=== PATIENT | female | born 1995 | race Caucasian/White ===

== ENCOUNTER 2019-12-16 09:39 | Inpatient (IN) | payer BC, SELFPAY ==
[2019-12-16] VITALS (45 sets, daily range): BP systolic 0–133; BP diastolic 0–81; PULSE 84–144; RESP 17–18; TEMP 36.7–37.1; O2SAT 96–98; BMI 30.3
[2019-12-16] MEDS: miSOPROStol 100 mcg tablet 50 MCG VAGINAL (11:49)
[2019-12-16 13:04] LABS: Basophils % 0.2 %; Eosinophils # 0.1 10^3/uL (0.0-0.8); Eosinophils % 0.6 %; Hematocrit 35.3 % (37.0-47.0); Hemoglobin 10.8 g/dL (11.5-15.3); Lymphocytes # 1.6 10^3/uL (0.8-4.8); Lymphocytes % 13.2 %; Mean Corpuscular HGB Conc 30.6 g/dL (30.0-36.0); Mean Corpuscular Hemoglobin 23.7 pg (28.0-34.0); Mean Corpuscular Volume 77.4 fL (81-99); Mean Platelet Volume 10.4 fL (7.4-10.4); Monocytes # 0.6 10^3/uL (0.2-0.9); Monocytes % 5.2 %; Neutrophils # 9.5 10^3/uL (1.8-7.7); Neutrophils % 79.2 %; Nucleated Red Blood Cells % 0 %; Platelet Count 278 10^3/cmm (130-400); Red Blood Count 4.56 10^6/uL (4.1-5.3); Red Cell Distribution Width 15.1 % (12.1-15.1)
[2019-12-16] MEDS: miSOPROStol 100 mcg tablet 25 MCG VAGINAL (16:23)
[2019-12-16] MEDS: dextrose 5%-lactated ringers 1,000 ML 125 ML IV (17:47)
[2019-12-16] MEDS: fentaNYL 50 mcg/mL INJ 2mL IV (17:47)
[2019-12-16] MEDS: lactated ringers 1,000 ML 999 ML IV (17:54)
--- NOTE | 2019-12-16 18:31 | ANES.PREANES ---
Pre-Anesthetic Assessment Pre-Anesthetic Assessment: Height/Weight: Height 1.68 m Weight 85.275 kg Temp Pulse Resp BP 98.0 F 124 H 18 133/80 12/16/19 12:43 12/16/19 12:37 12/16/19 17:47 12/16/19 12:37 Preop Diagnosis: labor Proposed Procedure: epidural Was Beta Lalo taken within 24 hours: N/A Last Intake: 17:00 Social: Social History: No alcohol and No tobacco Exam: Pre-Anes Outpt Exam: alert, oriented x 3, clear to auscultation bilaterally and regular rate & rhythm Airway: Submandibular: WNL Cervical ROM: WNL MP: 2 Pulmonary: Pulmonary: None reported CV/HEM: CV/HEM: None reported : : None reported Hepatic: Hepatic: None reported GI: GI: GERD Comments: Metabolic: Metabolic: None reported Musc/skel: Musc/skel: None reported Neuropsych: Neuropsych: Depression and None reported Anesthetic Plan: ASA status: II Anesthesia: Anesthesia Evaluation and Eval. for regional block Risk of > 500 ml blood loss (7ml/kg in children): No Meds/Allergies Current Medications: Current Medications Generic Name Dose Route Start Last Admin Trade Name Freq PRN Reason Stop Dose Admin Fentanyl 25 - 100 mcg 12/16/19 10:36 12/16/19 17:47 Sublimaze IV 50 mcg Q1H PRN Administration SEVERE PAIN Lactated Ringer's 1,000 mls @ 999 m ls/hr 12/16/19 10:36 12/16/19 17:54 Lactated Ringers IV 999 mls/hr .Q1H1M PRN Administration Per L&D Rescitati on Protocol Dextrose/Lactated Ringer's 1,000 mls @ 125 m ls/hr 12/16/19 10:45 12/16/19 17:47 Dextrose 5%-Lact ated Ringers IV 125 mls/hr .Q8H DHRUV Administration PFSH Anesthesia Female Reproductive History: : 3 Data Anesthesia CBC & Chem 7: 12/16/19 12:05 Other Labs: Laboratory Results - last 48 hr 12/16/19 12:05 WBC 12.0 H RBC 4.56 Hgb 10.8 L Hct 35.3 L MCV 77.4 L MCH 23.7 L MCHC 30.6 RDW 15.1 Plt Count 278 MPV 10.4 Neut % (Auto) 79.2 Lymph % (Auto) 13.2 [place] % (Auto) 5.2 Eos % (Auto) 0.6 Baso % (Auto) 0.2 Neut # (Auto) 9.5 H Lymph # (Auto) 1.6 [place] # (Auto) 0.6 Eos # (Auto) 0.1 Baso # (Auto) 0.0 Nucleated RBC % (auto) 0 Nucleated RBCs # 0.0 Cardiac Studies: No Data to Display
--- NOTE | 2019-12-16 19:17 | P.ANES_ITS ---
Anesthesia Procedures Procedure/Date: 12/16/19 Epidural: Time Out Performed: Yes Consents Signed: Procedure Consent Consent: requested by attending/covering physician and from patient Lumbar Level: L2-L3 Epidural position: sitting Epidural procedure: sterile prep of area (betadine), 1% lidocaine to numb the area (3ml), neg for paresthesia, te st dose given, 1.5% xylocaine 1:200k epi (3ml), 0.2% Ropivacaine bolus ml (8ml with 100mcg Fentanyl), no systemic response, sterile dressing applied, L.U.D. no apparent complications and 0.2% Ropiavacaine @ mls/hr (13ml/hr)
[2019-12-16] MEDS: oxytocin 30 UNIT/500 ML BAG 600 UNIT IV (19:45)
--- NOTE | 2019-12-16 20:45 | PM.DELIVERY ---
 Delivery Note: Date of delivery: 12/16/19 Pre-delivery diagnoses: 24-year-old 3 para 2-0-0-2 at 35 weeks estimated gestational age presenting with a demise of unknown origin Post-delivery diagnoses: Status post spontaneous breech delivery of a demise Anesthesia: epidural Estimated blood loss (mL): 50 Pre-Delivery Course: The patient is a pleasant 24-year-old female who had an unremarkable . She had no significant risk factors. Her labs were within normal limits. The patient presented to the hospital complaining of no movement since the night before at 7 PM. Upon arriving at the hospital, no heart tones were appreciated. An ultrasound was then done which demonstrated no heart tones. We then induced the patient by placing her on 50 mcg of Cytotec and followed it with 25 mcg of Cytotec 4 hours later. An amniotomy was then performed. An epidural was placed. She progressed to complete without difficulty. Delivery: DELIVERY: The patient progressed to complete without difficulty. She delivered a demise that was male male with a weight of 5 pounds 1 ounce The baby was delivered from the brando breech position without difficulty. The cord was then clamped and cut. There was a nuchal cord x1. There was no meconium. The placenta and 3 vessel cord were delivered intact shortly thereafter. The perineum and vaginal vault were carefully examined. No lacerations were noted. Both the mother and the baby were in stable condition. The possibility of having an autopsy, and the parents were not interested. We have contacted the home, and they will be by as soon as the family is done taking time with the baby. Post-Delivery Status: Good. The patient has expressed a strong desire to go home as soon as is reasonable because she does not want to be on the floor. I have agreed to send her home 4 hours as long as she does not have questionable bleeding. A&P Assessment and plan (1) 35 weeks gestation of : Status: Acute Code(s): Z3A.35 - 35 weeks gestation of (2) demise > 22 weeks, delivered, current hospitalization: Status: Acute Code(s): O36.4XX0 - Maternal care for intrauterine , not applicable or unspecified (3) Breech delivery: Status: Acute Code(s): O32.1XX0 - Maternal care for breech presentation, not applicable or unspecified Coding Level of Care Code Acute Electrical Assistant for Chg Fwd Diagnoses 35 weeks gestation of Z3A.35 demise > 22 weeks, delivered, current hospitalization O36.4XX0 Breech delivery O32.1XX0
--- NOTE | 2019-12-16 21:11 | PM.OBGYDC ---
Discharge Providers DIRECTOR CAREER Date of Admission: 12/16/19 09:39 Date of Discharge: 01/20/20 Attending Provider at Admission: Aleksandr Samaniego MD Attending Provider at Discharge: Aleksandr Samaniego MD Diagnoses at Discharge Discharge Diagnosis (1) 35 weeks gestation of : Status: Acute (2) demise > 22 weeks, delivered, current hospitalization: Status: Acute (3) Breech delivery: Status: Acute Reason for Visit Reason for Visit: Reason For Visit: decreased movement Hospital Course Hospital Course: The patient presented to the hospital because of reduced movement. Upon arrival was determined that there was no heart activity. We then induced the patient by starting her on 50 mcg of Cytotec x1 and 25 mcg 4 hours later. An amniotomy was performed. She progressed to complete and had an unremarkable breech delivery of a male . Patient expressed a strong desire to go home as soon as possible and to be off the OB floor. As result I discharged her home about 4 hours after the delivery and after was determined that her bleeding was minimal. Physical Exam Const: COMMON NORMALS: alert Resp: COMMON NORMALS: clear to auscultation bilaterally AUSCULTATION: clear to auscultation bilaterally Cardio: COMMON NORMALS: regular rate and regular rhythm RATE: regular rate RHYTHM: regular rhythm GI: INSPECTION: Yes normal to inspection and Yes other (Gravid) Extremity: COMMON NORMALS: normal to inspection GENERAL: Yes edema (Trace) Neuro: SENSORIUM/ORIENTATION: Yes alert Psych: COMMON NORMALS: mental status grossly normal Skin: COMMON NORMALS: no rashes or lesions noted GENERAL SKIN EXAM: no rashes or lesions noted Discharge Data Data Completed and Pending: Pending at discharge Category Date Time Status Hemagram Timed Lab 12/17/19 08:41 Ordered Labs from last 24 hours 12/16/19 12:05 WBC 12.0 H RBC 4.56 Hgb 10.8 L Hct 35.3 L MCV 77.4 L MCH 23.7 L MCHC 30.6 RDW 15.1 Plt Count 278 MPV 10.4 Neut % (Auto) 79.2 Lymph % (Auto) 13.2 [place] % (Auto) 5.2 Eos % (Auto) 0.6 Baso % (Auto) 0.2 Neut # (Auto) 9.5 H Lymph # (Auto) 1.6 [place] # (Auto) 0.6 Eos # (Auto) 0.1 Baso # (Auto) 0.0 Nucleated RBC % (a uto) 0 Nucleated RBCs # 0.0 Vitals: Last Vital Signs Temp 98.0 F 12/16/19 12:43 Pulse 97 12/16/19 21:03 Resp 18 12/16/19 17:47 BP 120/70 12/16/19 21:03 Pulse Ox 96 12/16/19 19:00 Discharge Plan Discharge Patient Disposition: Home, Self-Care Condition: Stable Prescriptions: Continued sertraline 25 mg Tablet 25 mg PO DAILY RF: 0 omeprazole 10 mg Capsule,Delayed Release(Dr/Ec) 10 mg PO DAILY RF: 0 No Action ibuprofen 800 mg tablet 800 mg PO TID PRN (Reason: Pain) RF: 0 Discharge Orders: Discharge Order (Routine); Ordered 12/16/19 Ordered By: Aleksandr Samaniego Referrals: Aleksandr Samaniego MD [Family Provider] - 4-7 days Discharge Diet: Regular Discharge Activity: Limit activity as instructed Patient Instructions: Vaginal Delivery (DC), Bleeding (DC) Discharge Date/Time: 12/17/19 00:15 Discharge Attestations DIRECTOR CAREER Time Spent in Discharge Care*: greater than 30 min Coding Level of Care Code Acute Director Of Regional Sales for Chg Fwd Diagnoses 35 weeks gestation of Z3A.35 demise > 22 weeks, delivered, current hospitalization O36.4XX0 Breech delivery O32.1XX0
--- NOTE | 2019-12-16 23:00 | PC.NURSE ---
[facility] be drawn on patient before she is to be discharged, patient does not need to stay for results and she may be discharged once she is at her 4 hour della from delivery. also orders RN to inform patient to call outpatient lab in the morning to determine if the rhogam injection is needed prior to driving to lab and if rhogam is needed she needs to also have her hemagram drawn at that time but she does not need to go to the lab just for the hemagram. RN placed KB stain order.
--- NOTE | 2019-12-16 23:20 | PC.NURSE ---
RN at bedside, POC discussed with patient and spouse. Verbalized understanding.
== END 2019-12-17 00:15 | disposition home or self-care (01) | DRG 807 ==
LOC: OPOB 09:50 → OBGYN 09:51 → OPOB 10:49
PROVIDERS: Admitting Provider Family Medicine; Family Provider Family Medicine; Visit Provider Family Medicine
DX: O36.4XX0 Maternal care for intrauterine death, not applicable or unspecified (principal); Z37.1 Single stillbirth; Z3A.35 35 weeks gestation of pregnancy; O69.81X0 Labor and delivery complicated by cord around neck, without compression, not applicable or unspecified; O32.1XX0 Maternal care for breech presentation, not applicable or unspecified
CPT/HCPCS: 12345; 36415; 59409; 85025; 85460; 99211; J2795; J3010

== ENCOUNTER 2019-12-18 07:50 | Outpatient (CLI) | payer BC, SELFPAY ==
[2019-12-18 09:09] VITALS: BMI 29.8
[2019-12-18 09:19] VITALS: BP 112/79; PULSE 79; RESP 16; TEMP 36.6; O2SAT 99
[2019-12-18 09:49] VITALS: BP 112/79; PULSE 79; RESP 16; TEMP 5392.2; TEMP 9738
== END 2019-12-18 07:51 | disposition home or self-care (01) ==
LOC: GILAB 07:55
PROVIDERS: Family Provider Family Medicine; PCP Family Medicine; Visit Provider Family Medicine
DX: O26.899 Other specified pregnancy related conditions, unspecified trimester (principal); Z67.91 Unspecified blood type, Rh negative
CPT/HCPCS: 36415; 86850; 86900; 90384; 96372

== ENCOUNTER 2021-01-19 09:34 | Outpatient (CLI) | payer BC, MEDICAID, SELFPAY ==
[2021-01-19 09:58] VITALS: TEMP 36.7
[2021-01-19 10:09] VITALS: BP 113/73; PULSE 88
[2021-01-19 10:24] VITALS: BP 115/75; PULSE 96
--- NOTE | 2021-01-19 10:34 | PC.NURSE ---
pt refused the medication offered to give.
== END 2021-01-19 10:44 | disposition home or self-care (01) ==
LOC: OPOB 09:42 → OBGYN 09:55
PROVIDERS: Family Provider Family Medicine; PCP Family Medicine; Visit Provider Family Medicine
DX: O21.9 Vomiting of pregnancy, unspecified (principal); Z3A.00 Weeks of gestation of pregnancy not specified
CPT/HCPCS: 59025; 99211

== ENCOUNTER 2024-08-06 09:10 | Outpatient (CLI) | payer OTHER, SELFPAY ==
[2024-08-06 09:10] VITALS: BMI 31.4
[2024-08-06 09:25] VITALS: BP 119/72; PULSE 103
[2024-08-06 09:40] VITALS: BP 114/68; PULSE 90
[2024-08-06 09:49] VITALS: RESP 17
[2024-08-06 09:53] VITALS: BP 114/68; PULSE 90
== END 2024-08-06 10:00 | disposition home or self-care (01) ==
LOC: OPOB 09:17 → OBGYN 09:18
PROVIDERS: PCP Family Medicine; Visit Provider Family Medicine
DX: O26.899 Other specified pregnancy related conditions, unspecified trimester (principal); Z3A.00 Weeks of gestation of pregnancy not specified; Z87.59 Personal history of other complications of pregnancy, childbirth and the puerperium
CPT/HCPCS: 59025; 99211

== ENCOUNTER 2024-08-13 09:20 | Outpatient (CLI) | payer OTHER, SELFPAY ==
[2024-08-13 09:15] VITALS: BMI 23.1
[2024-08-13 09:28] VITALS: BP 129/90; PULSE 118
[2024-08-13 09:48] VITALS: BP 121/75; PULSE 102
[2024-08-13 10:08] VITALS: BP 120/64; PULSE 99
[2024-08-13 10:46] VITALS: BP 120/64; PULSE 99; RESP 16
== END 2024-08-13 10:30 | disposition home or self-care (01) ==
LOC: OPOB 09:21 → OBGYN 09:23
PROVIDERS: PCP Family Medicine; Visit Provider Family Medicine
DX: O26.899 Other specified pregnancy related conditions, unspecified trimester (principal); Z3A.00 Weeks of gestation of pregnancy not specified; Z87.59 Personal history of other complications of pregnancy, childbirth and the puerperium
CPT/HCPCS: 59025; 99211

== ENCOUNTER 2024-08-20 09:33 | Outpatient (CLI) | payer OTHER, SELFPAY ==
[2024-08-20 09:41] VITALS: BP 113/68; PULSE 101
[2024-08-20 09:53] VITALS: RESP 16; BMI 31.7
[2024-08-20 09:56] VITALS: BP 114/64; PULSE 107
[2024-08-20 10:01] VITALS: BP 114/64; PULSE 107; RESP 16
== END 2024-08-20 10:05 | disposition home or self-care (01) ==
LOC: OPOB 09:34 → OBGYN 09:35
PROVIDERS: PCP Family Medicine; Visit Provider Family Medicine
DX: O26.899 Other specified pregnancy related conditions, unspecified trimester (principal); Z3A.00 Weeks of gestation of pregnancy not specified; Z87.59 Personal history of other complications of pregnancy, childbirth and the puerperium
CPT/HCPCS: 59025

== ENCOUNTER 2024-08-27 09:30 | Outpatient (CLI) | payer OTHER, SELFPAY ==
[2024-08-27 09:39] VITALS: BP 112/63; PULSE 95
[2024-08-27 09:55] VITALS: BP 100/63; PULSE 104
== END 2024-08-27 10:15 | disposition home or self-care (01) ==
LOC: OPOB 09:33 → OBGYN 09:35
PROVIDERS: PCP Family Medicine; Visit Provider Family Medicine
DX: O26.899 Other specified pregnancy related conditions, unspecified trimester (principal); Z3A.00 Weeks of gestation of pregnancy not specified; Z87.59 Personal history of other complications of pregnancy, childbirth and the puerperium
CPT/HCPCS: 59025

== ENCOUNTER 2024-08-30 16:21 | Outpatient (CLI) | payer OTHER, SELFPAY ==
[2024-08-30] VITALS (9 sets, daily range): BP systolic 104–116; BP diastolic 55–70; PULSE 64–83; RESP 18; TEMP 35.2; BMI 31.6
[2024-08-30 16:44] LABS: Bilirubin Urine Negative (Negative); Blood Urine Negative (Negative); Glucose Urine UA Negative (Normal); Ketones Urine 1+ (Negative); Leukocyte Esterase Urine Trace (Negative); Nitrate Urine Negative (Negative); Protein Urine 1+ (Negative); Urine Appearance Clear (CLEAR); Urine Color Yellow (Yellow); pH Urine 5.5 (5-7)
[2024-08-30 17:02] LABS: Bacteria Urine 2+ /hpf; Mucus Urine 3+ /hpf
[2024-08-30 17:03] LABS: Add Urine Culture? No
[2024-08-30] MEDS: acetaminophen 500 mg Tablet 1000 MG PO (17:32)
[2024-08-30] MEDS: cefTRIAXone 2,000 mg SDV 2000 MG IVP (17:32)
[2024-08-30] MEDS: ondansetron 2 mg/ML SDV 2 mL 4 MG IVP (17:32)
[2024-08-30] MEDS: lactated ringers 1,000 ML 999 ML IV (17:33)
== END 2024-08-30 19:55 | disposition home or self-care (01) ==
LOC: OPOB 16:22 → OBGYN 16:23
PROVIDERS: Family Medicine; PCP Family Medicine; Visit Provider Family Medicine
DX: O21.9 Vomiting of pregnancy, unspecified (principal); Z3A.00 Weeks of gestation of pregnancy not specified; R10.9 Unspecified abdominal pain
CPT/HCPCS: 59025; 81001; 87086; 96374; 99211; J0696; J2405; J7120

== ENCOUNTER 2024-09-03 09:18 | Outpatient (CLI) | payer OTHER, SELFPAY ==
[2024-09-03 09:20] VITALS: BMI 31.9
[2024-09-03 09:27] VITALS: BP 119/78; PULSE 101
[2024-09-03 09:42] VITALS: BP 111/76; PULSE 103
[2024-09-03 09:50] VITALS: BP 111/76; PULSE 103
== END 2024-09-03 09:50 | disposition home or self-care (01) ==
LOC: OPOB 09:20 → OBGYN 09:20
PROVIDERS: PCP Family Medicine; Visit Provider Family Medicine
DX: O26.899 Other specified pregnancy related conditions, unspecified trimester (principal); Z3A.00 Weeks of gestation of pregnancy not specified; Z87.59 Personal history of other complications of pregnancy, childbirth and the puerperium
CPT/HCPCS: 59025; 99211

== ENCOUNTER 2024-09-10 09:29 | Outpatient (CLI) | payer OTHER, SELFPAY ==
[2024-09-10 09:44] VITALS: BP 114/65; PULSE 84
[2024-09-10 09:45] VITALS: BMI 31.9
[2024-09-10 10:04] VITALS: BP 121/59; PULSE 86
[2024-09-10 10:24] VITALS: BP 106/68; PULSE 82
[2024-09-10 10:40] VITALS: BP 106/68; PULSE 82; RESP 16
== END 2024-09-10 10:40 | disposition home or self-care (01) ==
LOC: OPOB 09:29 → OBGYN 09:30
PROVIDERS: PCP Family Medicine; Visit Provider Family Medicine
DX: O26.899 Other specified pregnancy related conditions, unspecified trimester (principal); Z3A.00 Weeks of gestation of pregnancy not specified; Z87.59 Personal history of other complications of pregnancy, childbirth and the puerperium
CPT/HCPCS: 59025; 99211

== ENCOUNTER 2024-09-13 19:05 | Inpatient (IN) | payer OTHER, SELFPAY ==
[2024-09-13] VITALS (7 sets, daily range): BP systolic 108–128; BP diastolic 67–77; PULSE 90–108; RESP 18; TEMP 36.6; BMI 32.1
[2024-09-13 19:58] LABS: Basophils % 0.3 %; Eosinophils # 0.1 10^3/uL (0.0-0.8); Eosinophils % 1.1 %; Hematocrit 32.5 % (36-47); Lymphocytes # 2.4 10^3/uL (0.8-4.8); Lymphocytes % 20.4 %; Mean Corpuscular HGB Conc 30.2 g/dL (30-55); Mean Corpuscular Hemoglobin 22.3 pg (27-33); Mean Corpuscular Volume 73.9 fl (85-98); Mean Platelet Volume 10.3 fL (7.4-10.4); Monocytes # 0.6 10^3/uL (0.2-0.9); Monocytes % 5.4 %; Neutrophils # 8.48 10^3/uL (1.8-7.7); Neutrophils % 72.2 %; Nucleated Red Blood Cells % 0 %; Platelet Count 269 10^3/cmm (157-399); Red Cell Distribution Width 16.6 % (12.1-15.1); White Blood Count 11.75 10^3/uL (3.29-11.43)
[2024-09-13] MEDS: miSOPROStol 100 mcg tablet 25 MCG VAGINAL (21:03)
[2024-09-14] VITALS (43 sets, daily range): BP systolic 105–135; BP diastolic 61–92; PULSE 66–167; RESP 15–20; TEMP 36.6–36.7; O2SAT 82–100
[2024-09-14] MEDS: lactated ringers 1,000 ML 999 ML IV ×2 (03:50→04:55)
--- NOTE | 2024-09-14 04:59 | P.ANESASSM_ITS ---
Pre-Anesthetic Assessment Height/Weight: Height 1.68 m Weight 90.265 kg Temp Pulse Resp BP O2 Del Method 98.0 F 76 20 H 126/69 Room Air 09/14/24 03:22 09/14/24 03:22 09/14/24 03:22 09/14/24 03:22 09/14/24 03:22 Preop Diagnosis: labor pain epidural Was Beta Lalo taken within 24 hours: N/A Was Clonidine taken within 24 hours: N/A Exam alert, oriented x 3, clear to auscultation bilaterally and regular rate & rhythm Airway Submandibular: within normal limits Cervical ROM: within normal limits Mallampati: Class II Dentition: full Pulmonary None reported CV/HEM Anemia None reported Hepatic None reported GI Gastroesophageal Reflux Disease Metabolic None reported Musc/skel None reported Neuropsych None reported Anesthetic Plan ASA status: 2 Anesthesia: Regional (specify below) Medications/Allergies Home Medications Medication Instructions Recorded Confirmed Last Taken Type omeprazole 10 mg capsule,delayed 10 mg PO DAILY 12/16/19 09/13/24 09/12/24 History release ferrous sulfate 325 mg (65 mg 325 mg PO DAILY 09/13/24 09/13/24 09/12/24 History iron) tablet (Iron (ferrous sulfate)) Allergies Allergy/AdvReac Type Severity Reaction Status Date / Time codeine Allergy ALGY-Difficulty Verified 09/13/24 20:37 Breathing guaifenesin [From Robitussin] Allergy ALGY-Swell Verified 09/13/24 20:37 Lip/Tongue/Throat Current Medications Generic Name Dose Route Start Last Admin Trade Name Freq PRN Reason Stop Dose Admin Lactated Ringer's 1,000 mls @ 999 mls/hr 09/14/24 03:55 09/14/24 04:55 Lactated Ringers IV 999 mls/hr .Q1H1M PRN Administration See label comments PFSH Anesthesia Female Reproductive History : 5 Data Anesthesia 09/13/24 19:20 Short CBC 09/13/24 Range/Units 19:20 WBC 11.75 H (3.29-11.43) 10^3/uL Hgb 9.80 L (11.27-16.99) g/dL Hct 32.5 L (36-47) % MCV 73.9 L (85-98) fl Plt Count 269 (157-399) 10^3/cmm Neut % (Auto) 72.2 % Neut # (Auto) 8.48 H (1.8-7.7) 10^3/uL Cardiac Studies: 2 No Data to Display
[2024-09-14] MEDS: ROPivacaine syringe 100 MG/50 ML SYRINGE 13 MG EPIDURAL ×2 (05:22→07:33)
--- NOTE | 2024-09-14 05:28 | ANES.PROC ---
Anesthesia Procedures Procedure/Date: 09/14/24 epidural Procedure Narrative: epidural complete, bolus given, epidural pump initiated with SOLAR PANEL INSTALLATION SUPERVISOR education given, vitals taken during procedure and satisfactory throughout, patient admits to decrease pain, report of procedure to OB RN Epidural: Time Out Performed: Yes Consents Signed: Procedure Consent Consent: requested by attending/covering physician, from patient, risks and benefits reviewed and patient agrees to proceed Lumbar Level: L3-L4 Epidural position: sitting Epidural procedure: sterile prep of area, 1% lidocaine to numb the area (3 mL), 18 g needle, negative for paresthesia passed, neg for paresthesia, test dose given, 1.5% xylocaine 1:200k epi (5 mL), 0.2% Ropivacaine bolus ml (5 mL), placed PCEA, no systemic response, sterile dressing applied, L.U.D. no apparent complications and 0.2% Ropiavacaine @ mls/hr (13 mL/hr)
[2024-09-14] MEDS: oxytocin 30 UNIT/500 ML BAG 600 UNIT IV (08:07)
--- NOTE | 2024-09-14 08:19 | PM.OPHPUD ---
Labor & Delivery H&P Update Date of Procedure: September 14, 2024 Date H&P Performed: 09/09/24 Changes to previous documentation: None Admission Diagnosis: Preop diagnosis: labor pain Other information: The patient presented to the hospital for induction due to history of stillbirth. Her been relatively unremarkable. Please see the labs. Related Problem List Diagnoses (1) 38 weeks gestation of : A&P Assessment and plan (1) 38 weeks gestation of : I anticipate routine induction and spontaneous vaginal delivery Status: Resolved
--- NOTE | 2024-09-14 08:25 | PM.DELIVERY ---
Delivery Note: Date of delivery: September 14, 2024 Pre-delivery diagnoses: 29-year-old 5 para 4-0-1-3 at 38 weeks estimated gestational age Post-delivery diagnoses: Status post spontaneous vaginal delivery Procedure: Spontaneous vaginal delivery Delivering Physician: Aleksandr Samaniego Estimated blood loss (mL): 100 Pre-Delivery Course: The patient presented to the hospital for induction due to history of stillbirth. She was placed on Cytotec 25 mcg x 2. An amniotomy was performed. An epidural had been placed. She progressed complete without difficulty. Delivery: DELIVERY: The patient progressed to complete without difficulty. She delivered a male with a weight of 7 pounds 9 ounces with Apgars of 8, 9. The baby was delivered from the ULISES position and placed on the mother's abdomen prior to delivery of the shoulders, he was noted to have a tight nuchal cord that had to be cut at that time. The baby was delivered shortly thereafter without complications. There was no meconium. The placenta and 3 vessel cord were delivered intact shortly thereafter. The perineum and vaginal vault were carefully examined. No lacerations were noted. Both the mother and the baby were in stable condition. A&P Assessment and plan (1) Spontaneous vaginal delivery: I anticipate routine care. (2) Nuchal cord affecting delivery: (3) 38 weeks gestation of : Coding Level of Care Code Acute Code for Chg Fwd Diagnoses Spontaneous vaginal delivery O80 Nuchal cord affecting delivery O69.81X0 38 weeks gestation of Z3A.38
[2024-09-14] MEDS: ibuprofen 800 mg tablet PO ×2 (14:39→20:42)
[2024-09-14] MEDS: docusate sodium 100 mg Capsule PO (20:42)
[2024-09-14 22:17] LABS: Hematocrit 31.3 % (36-47); Mean Corpuscular Hemoglobin 22.4 pg (27-33); Mean Corpuscular Volume 74.7 fl (85-98); Platelet Count 215 10^3/cmm (157-399); Red Blood Count 4.19 10^6/uL (3.85-5.65); Red Cell Distribution Width 16.7 % (12.1-15.1); White Blood Count 10.34 10^3/uL (3.29-11.43)
[2024-09-15 05:00] VITALS: BP 116/83; PULSE 63; RESP 17; TEMP 36.7; O2SAT 99
--- NOTE | 2024-09-15 07:26 | P.DS_ITS ---
Discharge Providers PAPER MAKING MACHINE OPERATOR Date of Admission: 09/13/24 19:05 Date of Discharge: 09/15/24 Attending Provider at Admission: Aleksandr Samaniego MD Attending Provider at Discharge: Aleksandr Samaniego MD Primary Care Provider: Aleksandr Samaniego MD Diagnoses at Discharge Discharge Diagnosis (1) Spontaneous vaginal delivery: Status: Acute (2) Nuchal cord affecting delivery: Status: Acute (3) 38 weeks gestation of : Status: Acute Reason for Visit Reason for Visit: IOL Hospital Course Hospital Course The patient presented to the hospital for induction due to history of stillbirth. She was placed on Cytotec x 2. An epidural was placed. An amniotomy was performed. She had an unremarkable vaginal delivery. Her course was unremarkable. Her bleeding was within normal limits. She breast-fed well. Her pain was well-controlled. There were no concerns. Information Peripartum Data: Infant Delivery Method: Vaginal Physical Exam Narrative: The patient is alert. She appears comfortable. Her fundus is firm and below the umbilicus. Urinary Catheter Management: [place]: Cath Placed During This Visit: yes, but has since been removed by the nurse Reason for Continuing Indwelling Catheter: Decision to DC Catheter Urinary Catheter Date of Insertion: 09/14/24 Urinary Catheter Time of Insertion: 06:19 Date Urinary Catheter Removed: 09/14/24 Time Urinary Catheter Discontinued: 08:00 Discharge Data Studies Completed and Pending Pending at discharge Category Date Time Status Complete Crossmatch Routine Lab 09/13/24 19:20 Results Rho D Immune Globulin Routine Lab 09/13/24 19:20 Results Type and Screen Routine Lab 09/13/24 19:20 Results Laboratory Results WBC 10.34 10^3/uL (3.29-11.43) 09/14/24 22:08 RBC 4.19 10^6/uL (3.85-5.65) 09/14/24 22:08 Hgb 9.40 g/dL (11.27-16.99) L 09/14/24 22:08 Hct 31.3 % (36-47) L 09/14/24 22:08 MCV 74.7 fl (85-98) L 09/14/24 22:08 MCH 22.4 pg (27-33) L 09/14/24 22:08 MCHC 30.0 g/dL (30-55) 09/14/24 22:08 RDW 16.7 % (12.1-15.1) H 09/14/24 22:08 Plt Count 215 10^3/cmm (157-399) 09/14/24 22:08 MPV 10.0 fL (7.4-10.4) 09/14/24 22:08 Neut % (Auto) 72.2 % 09/13/24 19:20 Lymph % (Auto) 20.4 % 09/13/24 19:20 [place] % (Auto) 5.4 % 09/13/24 19:20 Eos % (Auto) 1.1 % 09/13/24 19:20 Baso % (Auto) 0.3 % 09/13/24 19:20 Neut # (Auto) 8.48 10^3/uL (1.8-7.7) H 09/13/24 19:20 Lymph # (Auto) 2.4 10^3/uL (0.8-4.8) 09/13/24 19:20 [place] # (Auto) 0.6 10^3/uL (0.2-0.9) 09/13/24 19:20 Eos # (Auto) 0.1 10^3/uL (0.0-0.8) 09/13/24 19:20 Baso # (Auto) 0.0 10^3/uL (0.0-0.1) 09/13/24 19:20 Nucleated RBC % (auto) 0 % 09/13/24 19:20 Nucleated RBCs # 0.0 /100WBC 09/13/24 19:20 Blood Type A Negative 09/13/24 19:20 Rho(D) Type Rh negative 09/13/24 19:20 Antibody Screen Negative 09/13/24 19:20 Screen Negative (Negative) 09/14/24 22:08 Vitals Last Vital Signs Temp 98.1 F 09/15/24 05:00 Pulse 63 09/15/24 05:00 Resp 17 09/15/24 05:00 BP 116/83 09/15/24 05:00 Pulse Ox 99 09/15/24 05:00 O2 Del Method Room Air 09/15/24 05:00 Results Labs OB ([facility] [place]): Blood Type A Negative 09/13/24 Antibody Screen Negative 09/13/24 Hct 31.3 % (36-47) L 09/14/24 Hgb 9.40 g/dL (11.27-16.99) L 09/14/24 Rho(D) Type Rh negative 09/13/24 Plt Count 215 10^3/cmm (157-399) 09/14/24 Micro Urine Specimen 08/30/24 Discharge Plan Discharge Patient Disposition: Home Condition: Stable Prescriptions: New ibuprofen 800 mg Tablet 800 mg PO TID Qty: 45 0RF Continued ferrous sulfate [Iron (ferrous sulfate)] 325 mg (65 mg iron) Tablet 325 mg PO DAILY Discontinued omeprazole 10 mg Capsule,Delayed Release(Dr/Ec) 10 mg PO DAILY Discharge Orders: Discharge Order (Routine); Ordered 09/15/24 Ordered By: Aleksandr Samaniego Referrals: Aleksandr Samaniego MD [Primary Care Provider] - 6 Weeks Discharge Diet: Usual diet Discharge Activity: Limit activity as instructed Patient Instructions: Depression (DC), Opioid Safety (DC), Preeclampsia and Eclampsia After Delivery (GEN), Hemorrhage (DC), OB Discharge Report, OB Food/Drug Interaction Guide, OB Care at Home, Opioid Safety, OB Vaginal Deliveries, Abnormal Bleeding Discharge Attestations PAPER MAKING MACHINE OPERATOR Time Spent in Discharge Care*: less than 30 min Coding Level of Care Code Acute Code for Chg Fwd Diagnoses Spontaneous vaginal delivery O80 Nuchal cord affecting delivery O69.81X0 38 weeks gestation of Z3A.38
[2024-09-15 07:40] VITALS: BP 132/96; PULSE 71; RESP 16; TEMP 36.6; O2SAT 99
[2024-09-15 09:00] VITALS: BP 120/89; PULSE 64; RESP 17; TEMP 36.7
[2024-09-15] MEDS: ibuprofen 800 mg tablet PO (10:03)
[2024-09-15] MEDS: docusate sodium 100 mg Capsule PO (10:03)
[2024-09-15] MEDS: PRENATAL VIT NO.130/IRON/FOLIC 1 EACH TABLET PO (10:03)
[2024-09-15 10:20] VITALS: BP 120/89; PULSE 64; RESP 17; TEMP 36.7
--- NOTE | 2024-09-15 12:00 | ANE.PACU2 ---
Inpatient post-anesthesia follow up: Airway intact: Yes Vital signs: Temperature 98.1 F Pulse Rate 64 Respiratory Rate 17 Blood Pressure 120/89 Pulse Oximetry 99 Oxygen Delivery Me thod Room Air Oxygen Flow Rate Fraction of Inspir ed Oxygen Hydration adequate: Yes Nausea and vomiting: No Pain level: 1 Mental status: Baseline Epidural Start/End: Epidural Start Date: 09/14/24 Epidural Start Time: 05:06 Epidural End Date: 09/15/24 Epidural End Time: 11:30
== END 2024-09-15 10:25 | disposition home or self-care (01) | DRG 807 ==
LOC: OPOB 19:06 → OBGYN 19:06
PROVIDERS: Admitting Provider Family Medicine; PCP Family Medicine; Visit Provider Family Medicine
DX: O69.81X0 Labor and delivery complicated by cord around neck, without compression, not applicable or unspecified (principal); Z37.0 Single live birth; Z3A.38 38 weeks gestation of pregnancy
CPT/HCPCS: 36415; 36430; 51702; 59025; 59409; 85025; 85027; 85460; 86850; 86900; 90384; J2590; J2795; J7120